=== PATIENT | female | born 1995 | race Caucasian/White ===

== ENCOUNTER 2018-06-15 20:59 | Emergency (ER) | END 2018-06-16 03:21 | disposition home or self-care (01) ==

== ENCOUNTER 2018-10-25 17:28 | Inpatient (IN) | payer MEDICAID ==
[~2018-10-25] VITALS: Ht 165.1 cm; Wt 98.5 kg
[~2018-10-25 17:28] MED LIST: ACET500C5 PO; AMOX1TAB10 PO
[2018-10-25 18:20] VITALS: BP 110/66; PULSE 90; RESP 18
[2018-10-25] MEDS ORDERED: PREN-93 PO (18:20)
[2018-10-25 18:21] VITALS: Ht 165.1 cm; Wt 98.5 kg
[2018-10-25] MEDS: LACTATED RINGER'S 1,000 ML IV SCH ×2 (20:11→20:50)
[2018-10-25] MEDS ORDERED: METHYLERGONOVINE 0.2 MG INJ IM PRN (22:00)
[2018-10-25] MEDS ORDERED: CEFAZOLIN 2 GM/50 ML (PMX) 50 ML IVPB SCH (22:00)
[2018-10-25] MEDS ORDERED: MISOPROSTOL 200 MCG TAB PR PRN (22:00)
[2018-10-25] MEDS ORDERED: OXYTOCIN 30 UNITS/LR 500 ML IV PRN (22:00)
[2018-10-25] MEDS ORDERED: OXYTOCIN 30 UNITS/LR 500 ML IV SCH (22:00)
[2018-10-25] MEDS ORDERED: CARBOPROST 250 MCG INJ IM PRN (22:00)
--- NOTE | 2018-10-25 23:42 | TRIAGE ---
OB Triage Datetime Report Generated by CPN: 10/25/2018 23:41 Datetime: 10/25/2018 22:53 Pain Assessment Pain Scale: 3 Pain Presence: Constant Pain Type: Dull; Ache Pain Location: Head Pain Goal: 2 Pain Relief Measures: Comfort Measures Datetime: 10/25/2018 22:47 Stage of : Labor Maternal Assessment Level of Consciousness: Fully Conscious Respiratory Effort: Unlabored Breath Sounds, Left: Clear and Equal Breath Sounds, Right: Clear and Equal Labor Evaluation Frequency: 3-5 Monitor Mode: External Duration (sec)2399: 40-45 Quality: Mild Pattern: Normal: <= 5 Contractions in 10 Minutes Resting Tone [place]: Relaxed Heart Rate FHR Baseline Rate: 130 Monitor Mode: External US FHR Baseline Changes: No Baseline Change Variability: Moderate 6-25 bpm Accelerations: 10X10 Decelerations: None Category: Category I Pain Assessment Pain Scale: 3 Pain Presence: Intermittent Pain Type: Dull; Ache Pain Location: Abdomen Pain Goal: 2 Pain Relief Measures: Comfort Measures Membrane Status: Intact Datetime: 10/25/2018 22:25 Assessment Type: Admission Assessment Vaginal Bleeding: None Maternal Assessment Level of Consciousness: Fully Conscious DTR's/Clonus: DTRs 2+; No Clonus Headache: Denies Blurred Vision: No Respiratory Effort: Unlabored; Regular Rhythm; Equal Expansion Breath Sounds, Left: Clear and Equal Breath Sounds, Right: Clear and Equal Nausea/Vomiting: Denies RUQ Epigastric Pain: Denies Lower Extremities Edema: None Degree: None Upper Extremities Edema: None Degree: None Facial Edema: None Fall Risk Assessment History of Falling: (0) No Secondary Diagnosis: (0) No Ambulatory Aid: (0) Bedrest/Nurse Assist IV Therapy: (20) Yes Gait: (0) Normal/Bedrest/Immobile Mental Status: (0) Oriented to Own Ability Fall Score: 20 Fall Risk Score Definition: No Risk: No action required Labor Evaluation Frequency: 3-5 Duration (sec)2399: 40-45 Quality: Mild Pattern: Normal: <= 5 Contractions in 10 Minutes Resting Tone [place]: Relaxed Heart Rate FHR Baseline Rate: 130 Variability: Moderate 6-25 bpm Accelerations: 15X15 Decelerations: None Category: Category I Pain Assessment Pain Scale: 3 Pain Presence: Intermittent Pain Type: Cramping; Dull; Contraction; Ache Pain Location: Abdomen Pain Goal: 2 Pain Assessment Comments: PT ALSO STATES DULL HEADACHE 3/10 Vaginal Exam Dilatation (cms): 1.0 Effacement (%): 50 Station: -2 (Annotations: SVE ON ADMISSION ABOUT 1800) Membrane Status: Intact Datetime: 10/25/2018 21:53 Stage of : Labor Maternal Assessment Level of Consciousness: Fully Conscious DTR's/Clonus: DTRs 2+ Headache: Denies Blurred Vision: No Respiratory Effort: Unlabored Breath Sounds, Left: Clear and Equal Breath Sounds, Right: Clear and Equal Nausea/Vomiting: Denies RUQ Epigastric Pain: Denies Facial Edema: None Labor Evaluation Frequency: 5-6 Monitor Mode: External Duration (sec)2399: 40-50 Quality: Mild Pattern: Normal: <= 5 Contractions in 10 Minutes Resting Tone [place]: Relaxed Heart Rate FHR Baseline Rate: 130 Monitor Mode: External US FHR Baseline Changes: No Baseline Change Variability: Moderate 6-25 bpm Accelerations: 15X15 Decelerations: None Category: Category I Pain Assessment Pain Scale: 2 Pain Presence: Intermittent Pain Type: Cramping; Dull; Contraction; Ache Pain Location: Abdomen Pain Goal: 2 Pain Relief Measures: Comfort Measures Membrane Status: Intact Datetime: 10/25/2018 21:31 Stage of : OB Triage Labor Evaluation Frequency: 2-6 Monitor Mode: External Duration (sec)2399: 50-70 Pattern: Normal: <= 5 Contractions in 10 Minutes Resting Tone [place]: Relaxed Heart Rate FHR Baseline Rate: 125 Monitor Mode: External US Variability: Moderate 6-25 bpm Accelerations: 15X15 Decelerations: None Category: Category I Pain Assessment Pain Scale: 0 Pain Presence: None/Denies Pain Type: N/A Pain Relief Measures: Comfort Measures Datetime: 10/25/2018 21:25 Stage of : OB Triage Datetime: 10/25/2018 21:14 Vaginal Exam Dilatation (cms): 1.0 Effacement (%): 50 Station: -2 Exam By: [facility], RN Datetime: 10/25/2018 20:30 Stage of : OB Triage Labor Evaluation Frequency: 4-5 Monitor Mode: External Duration (sec)2399: 40-60 Pattern: Normal: <= 5 Contractions in 10 Minutes Resting Tone [place]: Relaxed Contraction Comments: patient denies feeling contractions Heart Rate FHR Baseline Rate: 130 Monitor Mode: External US Variability: Moderate 6-25 bpm Accelerations: 15X15 Decelerations: None Category: Category I Pain Assessment Pain Scale: 0 Pain Presence: None/Denies Pain Type: N/A Pain Relief Measures: Comfort Measures Datetime: 10/25/2018 18:35 Vaginal Exam Dilatation (cms): 1.0 Effacement (%): 50 Station: -2 Exam By: khemani Cervix, Consistency: Moderate Cervix, Position: Midposition Datetime: 10/25/2018 18:18 Assessment Type: Triage Maternal Assessment Level of Consciousness: Fully Conscious DTR's/Clonus: DTRs 2+; No Clonus Headache: Denies Blurred Vision: No Respiratory Effort: Unlabored; Regular Rhythm; Equal Expansion Breath Sounds, Left: Clear and Equal Breath Sounds, Right: Clear and Equal Nausea/Vomiting: Denies RUQ Epigastric Pain: Denies Lower Extremities Edema: None Degree: None Upper Extremities Edema: None Degree: None Facial Edema: None Fall Risk Assessment History of Falling: (0) No Secondary Diagnosis: (0) No Ambulatory Aid: (0) Bedrest/Nurse Assist IV Therapy: (0) No Gait: (0) Normal/Bedrest/Immobile Mental Status: (0) Oriented to Own Ability Fall Score: 0 Fall Risk Score Definition: No Risk: No action required Datetime: 10/25/2018 18:17 Time of Arrival: 10/25/2018 21:25 EGA: 38.3 Arrived By: Ambulatory Arrived From: Home Chief Complaint: VAGINAL SPOTTING Contractions: Irregular Contractions: q 5-6 MINUTES Rupture of Membranes: Denies Vaginal Bleeding: None; Scant Vaginal Discharge: Denies Recent Sexual Intercouse: Denies Abdominal Trauma: Not Applicable Patient Complaints: Contractions Additional Patient Complaints: MILD CRAMPING Time Provider Notified: 10/25/2018 21:25 Provider Notified: DR RENTERIA Initial Plan: OB ASSESSMENT, VSS, FHR AND TOCO MONITORING Datetime: 10/25/2018 18:12 Time of Arrival: 10/25/2018 17:25 Arrived By: Ambulatory Arrived From: Home Chief Complaint: PT HERE C/O VAG. DISCHARGE Movement: Present Contractions: Denies/Absent Rupture of Membranes: Denies Vaginal Bleeding: None Vaginal Discharge: Present Recent Sexual Intercouse: Denies Abdominal Trauma: Not Applicable Patient Complaints: None Time Provider Notified: 10/25/2018 18:40 Provider Notified: DEXTER Initial Plan: VS/SVE/EFM Datetime: 10/25/2018 18:03 Monitor Mode: External Monitor Mode: External US
[2018-10-26] MEDS: LACTATED RINGER'S 1,000 ML IV SCH ×4 (02:05→21:07)
[2018-10-26] MEDS ORDERED: TERBUTALINE 1 MG/ML INJ SC ONE (04:00)
[2018-10-26] MEDS ORDERED: ONDANSETRON 4 MG INJ IV STA (11:21)
[2018-10-26] MEDS ORDERED: METOCLOPRAMIDE 10 MG INJ IV ONE (11:30)
[2018-10-26] MEDS ORDERED: FAMOTIDINE 20 MG INJ IV ONE (11:30)
--- NOTE | 2018-10-26 11:45 | PREAC ---
Date/Time of Note Date/Time of Note DATE: 10/26/18 TIME: 11:44 Anesthesia Eval and Record Evaluation Time Pre-Procedure Interview DATE: 10/26/18 TIME: 11:44 Age 23 Sex female NPO: 8 hrs Preoperative diagnosis term , prev Csection Planned procedure Repeat Csection Past Medical History Past Medical History: None Surgery & Anesthesia Issues Significant blood loss Meds Anticoagulation: No Beta Gigi within 24 hr: No Reason Beta Gigi not given: Pt. not on B-Gigi Reported Medications Vit No.124/Iron/FA ( Vitamin Tablet) 1 Each Tablet, 1 EACH PO DAILY, TAB 10/25/18 Discontinued Scripts Acetaminophen* (Tylophen*) 500 Mg Capsule, 1 CAP PO Q6H PRN for PAIN AND OR ELEVATED TEMP, #20 CAP Prov:DIANELYS,IZAIAH 06/16/18 Amoxicillin/Potassium Clav (Amox-Clav 875-125 mg Tablet) 875-125 mg Tab, 1 TAB PO BID for 10 Days, #20 TAB Prov:DIANELYS,IZAIAH 06/16/18 Current Medications Lactated Ringer's 1,000 ml @ 200 mls/hr Q5H IV Last administered on 10/26/18at 10:34; Admin Dose 200 MLS/HR; Start 10/25/18 at 19:29 Cefazolin Sodium/ Dextrose 50 ml @ 100 mls/hr ONCE IVPB ; Start 10/25/18 at 22:00 Oxytocin/Lactated Ringer's 500 ml @ 125 mls/hr POST IV ; Start 10/25/18 at 22:00 Oxytocin/Lactated Ringer's 500 ml @ 0 mls/hr ONCE PRN IV VAGINAL BLEEDING; Start 10/25/18 at 22:00 Methylergonovine Maleate (Methergine) 0.2 mg ONCE PRN IM VAGINAL BLEEDING; Start 10/25/18 at 22:00 Carboprost Tromethamine (Hemabate) 250 mcg ONCE PRN IM VAGINAL BLEEDING; Start 10/25/18 at 22:00 Misoprostol (Cytotec) 1,000 mcg ONCE PRN NH VAGINAL BLEEDING; Start 10/25/18 at 22:00 Meds reviewed: Yes Allergies Coded Allergies: No Known Allergy (Unverified , 10/25/18) Allergies Reviewed: Yes Labs/Studies Labs Reviewed: Reviewed by anesthesiologist Result Diagram: 10/25/182004 Laboratory Tests 10/25/18 20:05 Blood Bank Test 10/25/18 23:45 Antibody Screen NEGATIVE Blood Type O POSITIVE Rh Immune Globulin Candidate NO test: Positive Pre-procedure Exam Last vitals Vital Signs Date Temp Pulse Resp B/P (MAP) Pulse Ox O2 O2 Flow FiO2 Time Delivery Rate 10/25/18 98.7 90 18 110/66 Room Air 18:20 (81) Airway: Adequate mouth opening, Adequate thyromental dist Mallampati: Mallampati III Teeth: Normal Lung: Normal Heart: Normal ASA Physical Status ASA physical status: 2 Emergency: None Planned Anesthetic Neuraxial: Spinal Planned Pain Management Sub-arachniod narcotics, Parenteral pain med, Other neuraxial med Pre-operative Attestations Prior to commencing anesthesia and surgery, the patient was re-evaluated, there was verification of: *The patient's identity *The results of appropriate recent lab work and preoperative vital signs *The above evaluation not changing prior to induction *Anesthetic plan, risk benefits, alternative and complications discussed with pa tient/family; questions answered; patient/family understands, accepts and wishes to proceed. TRISTON HENDRICKSON MD Oct 26, 2018 11:45
[2018-10-26] MEDS ORDERED: ONDANSETRON 4 MG INJ IV PRN ×3 (12:00→18:00)
[2018-10-26] MEDS ORDERED: OXYTOCIN 10 UNIT INJ ONE (12:00)
[2018-10-26] MEDS ORDERED: HYDROmorphONE 1 MG/5 ML IV SYRINGE IV PRN ×3 (12:00)
[2018-10-26] MEDS ORDERED: LEVALBUTEROL (NEB) 1.25 MG/0.5 ML AMP HHN PRN (12:00)
[2018-10-26] MEDS ORDERED: KETOROLAC 30 MG INJ IV PRN ×3 (12:00→18:00)
[2018-10-26] MEDS ORDERED: FENTAnyl 50 MCG/ML VIAL IV PRN ×2 (12:00)
[2018-10-26] MEDS ORDERED: NALOXONE (0.4 MG/ML) INJ IV PRN ×2 (12:00→18:00)
[2018-10-26] MEDS ORDERED: ZOLPIDEM 5 MG TAB PO PRN ×2 (12:00→18:00)
[2018-10-26] MEDS ORDERED: LABETALOL HCL 20MG INJ IV PRN (12:00)
[2018-10-26] MEDS ORDERED: HYDROmorphONE 0.5 MG/0.5 ML SYG IV PRN ×4 (12:00→18:00)
[2018-10-26] MEDS ORDERED: DIPHENHYDRAMINE 50 MG INJ IV PRN ×3 (12:00→18:00)
[2018-10-26] MEDS ORDERED: hydrALAzine 20 MG INJ IV PRN (12:00)
[2018-10-26] MEDS ORDERED: morphine SULFATE/PF (10 MG/10 ML) INJ ONE (12:00)
[2018-10-26] MEDS ORDERED: EPINEPHrine 1 MG INJ ONE (12:01)
[2018-10-26] MEDS ORDERED: PHENYLephrine (100 MCG/ML) 10ML SYG ONE (13:14)
--- NOTE | 2018-10-26 14:31 | HP ---
Date/Time of Note Date/Time of Note DATE: 10/26/18 TIME: 14:28 OB - History Hx of Present Free Text/Dictation 23-year-old female 2 para 1 at 38+ weeks gestation admitted complaining of onset of uterine contractions started a few hours Denies rupture of membrane no vaginal bleed Last Menstrual Period: Jan 29, 2018 Estimated Due Date: Nov 05, 2018 : 2 Para: 1 Care: Good Care Obstetrical Complications: None Medical Complications: None Past Family/Social History * Past Medical, Surgical, Family and Obstetric Histories reviewed from chart. Blood Type: O+ Rubella: immune RPR/VDRL: Negative GBS Status: Negative HBsAG: Negative OB Admission Exam Vital Signs Vital Signs Vital Signs Date Temp Pulse Resp B/P (MAP) Pulse Ox O2 O2 Flow FiO2 Time Delivery Rate 10/25/18 98.7 90 18 110/66 Room Air 18:20 (81) Physical Exam HEENT: WNL Heart: Rhythm Normal Lungs: Clear, Equal Abdomen: WNL Extremities: Normal Reflexes: Normal Cervical Dilatation: 1cm Effacement: 50% Station: -3 Membranes: Intact Heart Rate: 140's Accelerations: Accelerations Present Decelerations: No Decelerations Varibility: Moderate Contractions on Admission: 6-10 Minutes Apart Date/Time Contractions Began: 10/25/2018 at 3 PM Frequency of Contractions: Every 5-10 minutes Duration: Over 50 seconds Intensity: Mild Last 72 hours Lab Results CBC & BMP 10/25/18 20:05 OB Assessment/Plan Other Assessment: Term gestation in labor pain Previous x1 Other plan: Patient desired to have a repeat section Minimal cervical dilatation advance itself to 50% on 2 cm patient was scheduled to have a repeat section FIFI RODRIGUEZ MD Oct 26, 2018 14:31
[2018-10-26] MEDS ORDERED: KETOROLAC 30 MG INJ IV STA (14:34)
--- NOTE | 2018-10-26 14:34 | OPR ---
Operative Report Planned Procedure Free Text/Dictation 23-year-old female admitted with uterine contractions at 38 weeks and previous and requested to have a repeat section Procedure date Oct 26, 2018 Procedure(s) Repeat delivery Performed by see signature line Chemical Pumper: MELISSA FERNANDEZ MD Anesthesiologist: TRISTON HENDRICKSON MD Pre-procedure diagnosis Term gestation Previous section [id number] Anesthesia Type: Bskkn0x spinal Post-Procedure Post-procedure diagnosis Repeat section Findings Live Baby in OT position Clear amniotic fluid Normal-appearing right and left fallopian tubes Estimated Blood Loss: 500 - 600 mls Specimen(s) none Grafts/Implant(s) none Complication(s) none Pt Condition post procedure: stable Disposition: PACU Procedure Description Under satisfactory anaesthesia a Pfannenstiel incision was made two fingerbreadth above and parallel to the symphysis of pubis around the previous scar and previous scar was removed Incision was extended laterally to the border of the Recti muscles on either sides. Incision was carried down with sharp and blunt dissection until fascia was reached. Anterior Recti muscle fascia was incised in mid portion and incision extended laterally to the border of skin incision. Fascia was mobilized from muscle superiorly and Recti muscles were from midline using sharp and blunt dissection. Peritoneum was visualized; Avoiding bowel and bladder it was incised . Incision was extended superiorly and inferiorly. Bladder blade was placed. Posterior peritoneum covering the lower segment of the uterus and lower segment of the uterus were incised.Low transverse uterine incision was made on lower segment of the uterus. Incision extended laterally to the border of Round Lig. on either sides and baby was delivered from OT. position . Amniotic fluid appeared clear. Cord blood was obtained and cord had 3 vessels . Placenta was delivered spontaneously and appeared intact and complete. Intrauterine cavity was rubbed with a laparotomy sponge. Uterine incision was closed in 2 layers using running stitches of No1 Monocryl. Hemostasis appeared secure. Ovaries and Fallopian tubes were within normal limits. Announcing needle, lap sponge and instrument count to be correct abdomen was closed in layers as follows: Peritoneum and Recti muscles with running stitches of 20 Vicryl. Fascia with running stitch of No 1 PDS. Subcutaneous tissue with running stitches of 20 Chromic and skin was closed using zoey. Patient tolerated the procedure well and was transferred to [facility] in good condition. FIFI RODRIGUEZ MD Oct 26, 2018 14:34
[2018-10-26] MEDS ORDERED: AZITHROMYCIN 500MG/NS (PMX) 250 ML IVPB ONE (15:00)
--- NOTE | 2018-10-26 16:07 | PAC ---
Date/Time of Note Date/Time of Note DATE: 10/26/18 TIME: 16:06 Post-Anesthesia Notes Post-Anesthesia Note Last documented vital signs Vital Signs Date Temp Pulse Resp B/P (MAP) Pulse Ox O2 O2 Flow FiO2 Time Delivery Rate 10/25/18 98.7 90 18 110/66 Room Air 18:20 (81) Activity: WNL Respiratory function: WNL Cardiovascular function: WNL Mental status: Baseline Pain reasonably controlled: Yes Hydration appropriate: Yes Nausea/Vomiting absent: Yes TRISTON HENDRICKSON MD Oct 26, 2018 16:07
[2018-10-26 17:20] VITALS: BP 102/53; PULSE 91; RESP 20
[2018-10-26 17:51] VITALS: BP 107/57; PULSE 87; RESP 20
[2018-10-26] MEDS ORDERED: OXYTOCIN 30 UNITS/LR 500 ML IV PRN (18:00)
[2018-10-26] MEDS ORDERED: LANOLIN HPA 1 PKT TOP PRN (18:00)
[2018-10-26] MEDS ORDERED: CARBOPROST 250 MCG INJ IM PRN (18:00)
[2018-10-26] MEDS ORDERED: OXYCODONE/ACETAMINOPHEN (5/325) TAB PO PRN (18:00)
[2018-10-26] MEDS ORDERED: HYDROCODONE/APAP (5/325) TAB PO PRN (18:00)
[2018-10-26] MEDS ORDERED: NA PHOSPHATE/BIPHOS 133 ML ENEMA PR PRN (18:00)
[2018-10-26] MEDS ORDERED: MISOPROSTOL 200 MCG TAB PR PRN (18:00)
[2018-10-26] MEDS ORDERED: METHYLERGONOVINE 0.2 MG INJ IM PRN (18:00)
[2018-10-26] MEDS: CLINDAMYCIN 300 MG CAP PO SCH ×2 (18:53→23:55)
[2018-10-26] MEDS: CEFAZOLIN 2 GM/50 ML (PMX) 50 ML IVPB SCH (19:00)
[2018-10-26 19:45] VITALS: BP 91/47; PULSE 100; RESP 18
[2018-10-26] MEDS: SENNA/DOCUSATE NA (8.6MG/50MG) TAB PO SCH (21:07)
[2018-10-27 00:24] VITALS: BP 102/55; PULSE 98; RESP 18
[2018-10-27] MEDS: CEFAZOLIN 2 GM/50 ML (PMX) 50 ML IVPB SCH ×2 (01:30→09:22)
[2018-10-27 04:06] VITALS: BP 89/59; PULSE 98; RESP 18
[2018-10-27] MEDS: CLINDAMYCIN 300 MG CAP PO SCH ×3 (05:41→18:14)
[2018-10-27] MEDS: LACTATED RINGER'S 1,000 ML IV SCH (06:16)
[2018-10-27 07:30] VITALS: BP 94/40; PULSE 111; RESP 20
[2018-10-27] MEDS: SENNA/DOCUSATE NA (8.6MG/50MG) TAB PO SCH ×2 (09:22→20:45)
[2018-10-27] MEDS ORDERED: BISACODYL 10 MG SUPP PR ONE (10:00)
[2018-10-27 11:43] VITALS: BP 102/59; PULSE 90; RESP 20
[2018-10-27] MEDS: IBUPROFEN 800 MG TAB PO SCH ×2 (13:42→21:37)
--- NOTE | 2018-10-27 14:30 | PN ---
Date/Time of Note Date/Time of Note DATE: 10/27/18 TIME: 14:29 Assessment/Plan VTE Prophylaxis VTE Prophylaxis Intervention: ambulation Lines/Catheters IV Catheter Type (from Nrsg): Peripheral IV Assessment/Plan Assessment/Plan Status post postop day #1 Advance diet and ambulate Continue to monitor vital signs Subjective 24 Hr Interval Summary No bowel movement but passing flatus Constitutional: no complaints, improved, ambulates, BM, flatus, urine output Pain Control: well controlled Exam/Review of Systems Vital Signs Vitals Vital Signs Date Temp Pulse Resp B/P (MAP) Pulse Ox O2 O2 Flow FiO2 Time Delivery Rate 10/27/18 99.4 90 20 102/59 97 Room Air 11:43 (73) Intake and Output 10/26/18 10/26/18 10/27/18 1515:00 23:00 07:00 IntakeIntake Total 3625 ml 875 ml 875 ml OutputOutput Total 200 ml 1280 ml 850 ml BalanceBalance 3425 ml -405 ml 25 ml Exam Free Text/Dictation Abdomen is soft with present bowel sounds and abdomen does not seem distended Incision is covered Constitutional: alert, oriented, well developed Psych: no complaints, nl mood/affect Head: normocephalic, atraumatic Eyes: nl conjunctiva, EOMI, nl lids, nl sclera ENMT: nl external ears & nose, nl lips & teeth, nl nasal mucosa & septum, mucosa pink and moist Neck: supple, non-tender Respiratory: clear to auscultation, normal air movement Cardiovascular: regular rate and rhythm, nl pulses Gastrointestinal: soft, nl liver, spleen, non-tender Musculoskeletal: nl extremities to inspection, nl gait and stance Extremities: normal pulses 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
[2018-10-27 16:11] VITALS: BP 102/55; PULSE 100; RESP 20
[2018-10-27 19:40] VITALS: BP 107/67; PULSE 101; RESP 18
[2018-10-28] MEDS: CLINDAMYCIN 300 MG CAP PO SCH ×5 (00:07→23:42)
[2018-10-28 03:35] VITALS: BP 94/56; PULSE 93; RESP 18
[2018-10-28] MEDS: IBUPROFEN 800 MG TAB PO SCH ×3 (05:52→22:27)
[2018-10-28 08:00] VITALS: BP 105/58; PULSE 90; RESP 18
[2018-10-28] MEDS: SENNA/DOCUSATE NA (8.6MG/50MG) TAB PO SCH ×2 (09:02→21:20)
[2018-10-28] MEDS ORDERED: IBUP800T48 PO (14:06)
--- NOTE | 2018-10-28 14:08 | DS ---
Date/Time of Note Date/Time of Note Home today or next day DATE: 10/28/18 TIME: 14:07 Obstetrical Discharge Record Final Diagnosis Final Diagnosis: Term delivered Other Final Diagnosis Status post repeat Section Section: Repeat Condition on Discharge Physical Assessment Last Vitals: See nurse's notes Voiding: Yes Bowel Movement: Yes Breast: Soft, non-tender, Filling Fundus: Firm Abdomen and Incision: Abdomen is soft with present bowel sounds Incision appears to be healing well without induration and related Episiotomy: Not applicable Calf Tenderness: No Patient Condition: Good FIFI RODRIGUEZ MD Oct 28, 2018 14:08
--- NOTE | 2018-10-28 14:14 | DS ---
Date/Time of Note Date/Time of Note DATE: 10/28/18 TIME: 14:09 Discharge Summary Admission/Discharge Info Admit Date/Time Oct 25, 2018 at 21:25 Discharge Date/Time October 27 or 2018 Discharge Diagnosis Status post repeat Patient Condition: Good Procedures Repeat section Hx of Present Illness 23-year-old female underwent repeat section at term in labor Hospital Course Patient tolerated diet well was ambulating without problem Discharge home on second or third day with good prognosis in good condition Hospital course remained uncomplicated Home Meds Active Scripts Ibuprofen* (Motrin*) 800 Mg Tab, 800 MG PO Q8, #60 TAB 0 Refills Prov:FIFI RODRIGUEZ MD 10/28/18 Reported Medications Vit No.124/Iron/FA ( Vitamin Tablet) 1 Each Tablet, 1 EACH PO DAILY, TAB 10/25/18 Discontinued Scripts Acetaminophen* (Tylophen*) 500 Mg Capsule, 1 CAP PO Q6H PRN for PAIN AND OR ELEVATED TEMP, #20 CAP Prov:IZAIAH IVORY 06/16/18 Amoxicillin/Potassium Clav (Amox-Clav 875-125 mg Tablet) 875-125 mg Tab, 1 TAB PO BID for 10 Days, #20 TAB Prov:IZAIAH IVORY 06/16/18 Follow-up Plan To 3 days in clinic for staple removal Primary Care Provider Care Physician No Primary Time spent on discharge: > 30 minutes FIFI RODRIGUEZ MD Oct 28, 2018 14:14
--- NOTE | 2018-10-28 14:15 | PD.PPDC ---
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 Physician Information 23-year-old female has repeat Diagnosis [id number] Final Diagnosis: [id number] Status post repeat Condition [id number] Patient Condition: Lwpah2r Good Diet Bjuts7Jr Diet: Omdgn6b Resume Regular Diet Activity/Restrictions Oarnk0Xd Activity: Zkztw5k May Shower [id number] Restrictions: Mxzfd8u No Exercising No Lifting Nothing in the Vagina Msnlg3Gl Return to Work or School: Piayr7o Dec 25, 2018 Wound/Drain Care Instructions [id number] Wound/Drain Care Instructions: Mxnls3i Keep clean and dry Follow-up Follow-up with Physician: 2, 3, Day/Days (In clinic for staple removal) 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
[2018-10-28] MEDS ORDERED: ACET325T33 PO (14:16)
[2018-10-28] MEDS: ACETAMINOPHEN 325 MG TAB PO SCH ×2 (15:08→21:20)
[2018-10-28 15:50] VITALS: BP 95/59; PULSE 96; RESP 18
[2018-10-28 20:00] VITALS: BP 108/67; PULSE 84; RESP 21
[2018-10-29] MEDS: ACETAMINOPHEN 325 MG TAB PO SCH ×4 (02:24→17:48)
[2018-10-29 03:44] VITALS: BP 113/58; PULSE 85; RESP 18
[2018-10-29] MEDS: CLINDAMYCIN 300 MG CAP PO SCH ×3 (05:33→17:47)
[2018-10-29] MEDS: IBUPROFEN 800 MG TAB PO SCH ×2 (05:34→14:41)
[2018-10-29 08:30] VITALS: BP 95/57; PULSE 78; RESP 18
[2018-10-29] MEDS: SENNA/DOCUSATE NA (8.6MG/50MG) TAB PO SCH (08:49)
[2018-10-29] MEDS ORDERED: MEASLES,MUMPS,RUBELLA VACCINE INJ SC* ONE (09:00)
[2018-10-29] MEDS ORDERED: DIPHTH/TET/ACEL PERTUSS (ADULT) 0.5 ML VIAL IM* ONE (09:00)
[2018-10-29 15:50] VITALS: BP 105/56; PULSE 82; RESP 18
== END 2018-10-29 18:35 | disposition home or self-care (01) | DRG 788 ==
LOC: OBT 17:28 → L-D 17:29 → OBT 21:25 → L-D 21:25 → PP1 10-26 17:13
PROVIDERS: ADMIT Obstetrics & Gynecology; ATTEND Obstetrics & Gynecology
PROC: 10D00Z1 Extraction of Products of Conception, Low, Open Approach (ICD-10-PCS; principal; 2018-10-26 12:30)
DX: O34.219 Maternal care for unspecified type scar from previous cesarean delivery (principal); Z3A.38 38 weeks gestation of pregnancy; Z37.0 Single live birth
CPT/HCPCS: 36415; 81001; 85025; 85610; 85730; 86592; 86850; 86900; 86901; 87086; 87340; 87591; 96360; 99464; G0463; J0171; J0456; J0690; J1200; J1885; J2274; J2370; J2405; J2590; J2765; J3105; J7120